=== PATIENT | female | born 1965 | race Hispanic/Latino ===

== ENCOUNTER 2021-09-23 08:10 | Outpatient (CLI) | payer BC, OTHER | END 2021-09-23 08:11 | disposition home or self-care (01) | LOC: CSHLAB 08:10 | PROVIDERS: ATTEND Obstetrics & Gynecology | DX: Z01.812 Encounter for preprocedural laboratory examination (principal); Z20.822 Contact with and (suspected) exposure to COVID-19; N84.0 Polyp of corpus uteri; N85.02 Endometrial intraepithelial neoplasia [EIN] | CPT/HCPCS: 80048; 85027; 86850; 86900; 86901; U0003; U0005 ==